=== PATIENT | male | born 1945 | race African-American/Black ===

== ENCOUNTER → 2018-10-27 | Outpatient (CLI) | payer MEDICARE, OTHER | END | disposition home or self-care (01) | LOC: RAD 10:39 | PROVIDERS: ATTEND Specialist | DX: I11.9 Hypertensive heart disease without heart failure (principal); R94.31 Abnormal electrocardiogram [ECG] [EKG]; E78.5 Hyperlipidemia, unspecified | CPT/HCPCS: 71045; 93005 ==

== ENCOUNTER → 2023-03-24 | Outpatient (CLI) | payer MEDICARE, OTHER | END | disposition home or self-care (01) | LOC: LAB 10:47 | PROVIDERS: ATTEND Specialist | DX: I10 Essential (primary) hypertension (principal) | CPT/HCPCS: 71046 ==